=== PATIENT | male | born 1965 ===

== ENCOUNTER 2018-05-23 12:48 | Emergency (ER) | payer OTHER ==
[2018-05-23 13:02] VITALS: BP 118/77; PULSE 77; RESP 18; TEMP 97.8; O2SAT 99
--- NOTE | 2018-05-23 13:35 | C.PDOC ---
History Of Present Illness 52 year old male comes in with sutures to his lip and is requesting suture removal. Patient has a vertical line down the lip which was repaired in [place] 10 days ago. Patient states that the door of a truck was closing and hit him on the face. He denies headache, nausea, vomiting, fever, or chills. Time Seen by Provider: 05/23/18 13:04 Chief Complaint (Nursing): Suture/Staple Removal History Per: Patient History/Exam Limitations: no limitations Onset/Duration Of Symptoms: Days Ago Current Symptoms Are (Timing): Still Present Past Medical History Reviewed: Historical Data, Nursing Documentation, Vital Signs Vital Signs: Last Vital Signs Temp 97.8 F 05/23/18 12:59 Pulse 77 05/23/18 12:59 Resp 18 05/23/18 12:59 BP 118/77 05/23/18 12:59 Pulse Ox 99 05/23/18 12:59 Family History: States: No Known Family Hx - Social History Hx Alcohol Use: Yes Hx Substance Use: No - Immunization History Hx Tetanus Toxoid Vaccination: Yes Hx Influenza Vaccination: No Hx Pneumococcal Vaccination: No Review Of Systems Except As Marked, All Systems Reviewed And Found Negative. Constitutional: Negative for: Fever, Chills ENT: Positive for: Other (Sutures to his lip) Gastrointestinal: Negative for: Nausea, Vomiting Neurological: Negative for: Headache Physical Exam - Physical Exam Appears: Non-toxic, No Acute Distress Skin: Warm, Dry Head: Laceration (2 cm well healing laceration on the left side of lip with 8 simple interrupted sutures) Eye(s): bilateral: Normal Inspection Oral Mucosa: Moist Neck: Supple Extremity: Bilateral: Normal Color And Temperature, Normal ROM Neurological/Psych: Oriented x3, Normal Speech ED Course And Treatment O2 Sat by Pulse Oximetry: 99 (RA) Pulse Ox Interpretation: Normal Medical Decision Making Medical Decision Makin cm well-healing laceration with 8 simple interrupted sutures removed without any incident. Disposition Counseled Patient/Family Regarding: Diagnosis, Need For Followup - Disposition Referrals: [facility] [Outside] Disposition: HOME/ ROUTINE Disposition Time: 13:32 Condition: STABLE Prescriptions: Vitamin E [Vitamin E 400 Units Cap] 1 cap TD TID #30 cap Instructions: Stitches Removal Forms: [employer] [facility] (Egyptian), Gen Discharge Inst Egyptian - POA Present On Arrival: None - Clinical Impression Clinical Impression: Removal of suture - Scribe Statement The provider has reviewed the documentation as recorded by the Scribe Jaida Nichols Provider Attestation: All medical record entries made by the Gustavoibe were at my direction and personally dictated by me. I have reviewed the chart and agree that the record accurately reflects my personal performance of the history, physical exam, medical decision making, and the department course for this patient. I have also personally directed, reviewed, and agree with the discharge instructions and disposition.
== END 2018-05-23 13:55 | disposition home or self-care (01) ==
LOC: C.ER 12:48
DX: Z48.02 Encounter for removal of sutures (principal)